=== PATIENT | male | born 1970 | race African-American/Black ===

== ENCOUNTER 2024-01-14 15:43 | Inpatient (IN) | payer BC, SELFPAY ==
[2024-01-14] VITALS (10 sets, daily range): BP systolic 100–136; BP diastolic 61–93
--- NOTE | 2024-01-14 12:01 | ED.GENMED ---
History of Present Illness
General
Chief Complaint: Breathing Problem
Source: patient
Exam Limitations: none
Time Seen by Provider: 01/14/24 11:34
Nursing documentation reviewed up to this point in time: agreed with
Travel History
Have you had any contact with someone who has COVID-19?: No
Do you have any symptoms of coronavirus? Fever > 100 degrees, chills, cough, shortness of breath, sore throat, loss of taste or smell, muscle aches, or headache?: No
History of Present Illness
History of Present Illness:
53-year-old male with past medical history of lupus hypertension presents to the ER for evaluation. Patient reports on Tuesday 3 days ago he started with left rib cage pain and thought he slept in his bed wrong. In addition his blood pressure
was running high and his family doctor switched his amlodipine to amlodipine with HCTZ. He reports since new medication has not been sleeping well because he is urinated many times throughout the night however last night noted that his urine was
rust colored. Today he saw his family doctor his urine was also rust color and there was small clots of blood. He does feel slightly short of breath even at rest but does have pain worse with deep breath in the left posterior rib area. No prior
history of DVT PE.
Past History
Past History
ED Past Medical History: HTN and Other (Lupus)
ED Past Surgical History: None
Patient has exhibited threatening behavior?: No
PSI?: No
Social History
Tobacco: Non-smoker
Alcohol: None
Drug: None
Personal:
Living: with family
Employment: Employed
Review of Systems
Review of Systems
Allergies reviewed?: Yes
All Other Systems: ROS reviewed and negative except as documented in HPI and ROS
Constitutional: Reports no symptoms
Respiratory: Reports trouble breathing and other (pain with deep breath to left posterior rib region ); Denies cough
Cardiac: Reports no symptoms
ABD/GI: Reports no symptoms; Denies nausea or vomiting
: Reports bleeding (blood in urine )
Skin: Reports no symptoms
Neurological: Reports no symptoms
Phy Exam
General Physical Exam
General Presentation: no apparent distress
General age: appears stated age
General Skin: warm and dry
General Habitus: obese
General Mental: alert
General Hydration: appears well hydrated
Cardiovascular Exam
Cardiovascular Exam: regular rate/rhythm, no murmur and normal peripheral pulses
Pulmonary Exam
Pulmonary Exam: lungs clear and no respiratory distress
Neurological Exam
Neurological Exam: alert and oriented x3
[place] Coma Scale
Eye Opening: Spontaneous
Verbal Response: Oriented
Motor Response: Obeys Commands
GCS Total Score: 15
Musculoskeletal Exam
Musculoskeletal Exam: full ROM
Skin Exam
Skin Exam: normal color and warm/dry
Psychiatric Exam
Psychiatric Exam: normal mood/affect
Scores
Heart Failure Risk
Heart Failure Risk Score: Not Applicable
PESI
Age: 53
Sex: Male
History of cancer: No
History of heart failure: No
History of chronic lung disease: No
Heart rate >/= 110: No
Systolic BP <100 mmHg: No
Respiratory rate >/= 30: No
Temperature <36�C/96.8�F: No
Altered mental status (disorientation, lethargy, stupor, or coma): No
O2 saturation <90%: No
Score: 62
Class: Class 1: <66 (very low mortality 0-1.6%)
Course
Orders/Labs/Results
Orders:
Orders
01/14/24 10:39
Electrocardiogram (*1) Urgent
Reason for Study: Chest Pain
01/14/24 10:40
EKG- Treatment ONCE
01/14/24 11:56
IV Insert/Care/Rem.- Treatment PRN
01/14/24 12:24
Complete Blood Count/With Diff Urgent
Comprehensive Metabolic Panel Urgent
DDimer [D-Dimer] Urgent
01/14/24 13:29
CT Chest Pe Study Urgent
Comment:
Reason For Exam: sob left pleuritic pain
01/14/24 13:30
CT Abd/Pel (IV only)-DH only Urgent
Reason For Exam: left flank pain
01/14/24 14:37
Urinalysis Reflex To Culture Urgent
Date Specimen was Collected: 01/14/24
Time Specimen was Collected: 12:22
Urine Microscopic Reflex Cult Urgent
Urine Culture Urgent
CHRISTINE Source: U
Specimen Description:
Date Specimen was Collected: 01/14/24
Time Specimen was Collected: 12:22
01/14/24 15:01
Heparin 10,000 units IV NOW STA
Nursing to Place Non Medication Order As Directed
Physician Order: PTT 6 hours after initial start of Heparin infusion
Above order entered?: Yes
01/14/24 15:20
Heparin 10,000 units IV PRN PRN
Heparin 5,000 units IV PRN PRN
01/14/24 15:23
PTT Urgent
Comment: Obtain baseline before beginning heparin infusion if not already collected
01/14/24 15:27
Admit/Transfer Patient As Directed
Co-Sign Provider:
Level of Care: Inpatient admission
Assign to:: Telemetry
Physician / Group: Hospitalist
Diagnosis: PE
Reason for Telemetry: Medication for Arrhythmia
Date to Stop Telemetry: 01/16/24
Time to Stop Telemetry: 11:00
Reason for Hospitalization: .
Expected length of stay greater than two midnights?: Yes
ELOS- Estimated Length of Stay in days: 3
I certify the patient meets the requirements for IP care: Yes
01/14/24 15:30
Heparin 74056 Units/250 ml 25,000 units in 250 ml IV PER PROTOCOL
Weight to be used for heparin protocol in kilograms (kg):: 176.7
Protocol:: DVT/PE
PTT Goal Range to be used:: PTT 73 to 111 seconds
Order type:: Initial
INITIAL Infusion Dose (UNITS/KG/hr) & then follow protocol:: 18 units/kg/hr
Infusion Dose in UNITS/hr & then follow protocol (UNITS/hr):: 2,000
INFUSION RATE in mL/hr & then follow protocol (mL/hr):: 20
For DVT/PE algorithm, re-bolus for low PTT?: Yes
PTT less than or equal to 64 seconds:: Re-bolus 80 units/kg (max 10,000units). Increase by 500 units/hr
(+ 5mL/hr)
PTT 64.1 to 72.9 seconds:: Re-bolus 40 units/kg (max 5,000 units). Increase by 300 units/hr
(+ 3mL/hr)
PTT 73 to 111 seconds:: Target Range. No change in rate.
PTT 111.1 to 130.9 seconds:: Decrease rate by 300 units/hr (- 3 mL/hr)
PTT 131 to 199.9 seconds:: HOLD for 1 hr. Then decrease by 400 units/hr (- 4mL/hr)
PTT greater than or equal to 200 seconds:: HOLD for 2 hrs & Notify Provider. Then decrease by 500 units/hr
(- 5mL/hr)
Lab follow-up:: Each change, PTT q6h until 2 consecutive are therapeutic. Then
PTT daily.
01/14/24 15:33
Troponin I Stat
01/14/24 21:42
PTT Urgent
01/16/24 11:00
DC Protocol for Telemetry ONCE
Abnormal Lab Results
01/14/24 01/14/24
12: 14:37
Plt Count 110 L 10^3/uL
(130-400)
MPV 11.6 H fL
(7.4-10.4)
Absolute Lymphs (auto) 0.8 L 10^3/uL
(1.2-3.4)
Absolute Monos (auto) 0.9 H 10^3/uL
(0.1-0.6)
Neutrophils % 75.4 H %
(42.2-75.2)
Lymphocytes % 11.7 L %
(20.5-51.1)
Monocytes % 12.2 H %
(1.7-9.3)
D-Dimer 1.35 H ug/mlFEU
(0.00-0.50)
Glucose 112 H mg/dl
(70-99)
Total Bilirubin 2.1 H mg/dl
(0.2-1.3)
Total Protein 8.8 H g/dl
(6.3-8.2)
Urine Ketones 1+ A
(Negative)
Ur Occult Blood Reflex Trace A
(Negative)
Urine Urobilinogen 2+ A
(Neg - 1+)
Leukocyte Esterase Rfl 2+ A
(Negative)
Urine RBC 3-6 A /HPF
(0-2)
Urine WBC (Reflex) 16-20 A /HPF
(0-5)
Urine Bacteria (Reflex) Few A
(Negative)
01/14/24 12:24
01/14/24 12:24
Vital Signs
Initial and Last Documented VS:
Initial Vital Signs
Temp Pulse Resp BP Pulse Ox
100.0 F 96 18 124/78 95
01/14/24 10:58 01/14/24 10:58 01/14/24 10:58 01/14/24 10:58 01/14/24 10:58
Last Documented Vital Signs
Temp Pulse Resp BP Pulse Ox
100.0 F 97 25 120/61 95
01/14/24 10:58 01/14/24 15:30 01/14/24 14:45 01/14/24 15:00 01/14/24 15:30
Tape Cutting Machine Operator consulted with Physician
Tape Cutting Machine Operator consulted with physician?: Yes
Name of Physician Consulted: Samira
MDM/Problems Addressed
Differential Diagnosis Includes:
Not limited to UTI kidney stone PE pleurisy
MDM/Problems Addressed:
Patient is a 53-year-old male who present to the ER for evaluation. Patient was started on amlodipine with hydrochlorothiazide for elevated blood pressure the HCTZ was new he was up frequently urinating and noticed blood in his urine which she
describes as rust color and also passing clots in the doctor's office. He was sent for possible renal stone. He also admits to some shortness of breath which is new over the past day or 2 with left-sided pleuritic pain. Patient present
nontachycardic nonhypoxic low-grade temp with no recent fever or chills. CAT scan was done which does show pulmonary embolus in the left lower lobe segmental pulmonary artery consistent with PE thrombus and there is also artifact versus tiny PE in
the right lower lobe and right upper lobe findings equivocal for right ventricular heart strain.
Patient nontoxic well-appearing no stones or hydro visualized on CAT scan. Will start heparin.
Pt carranza have burning with urination in addition to frequent urination he did mention rust colored urine and thought he had blood in his urine however RBCs only 3�6 however white blood cells 16-20 case discussed admitting hospitalist who will order
Rocephin
*Radiology
Radiology exam reviewed: radiology read reviewed
*Pulse Oximetry
Patient hypoxic: no
*Critical Care Note
Total Time (30-74mins, 75-104mins- exclusive of procedures): Not Applicable
ED Attending Note
-
Portions of this chart may have been created with voice recognition software.� Occasional wrong word or��sound alike� substitutions may have occurred due to the inherent limitations of voice recognition software.
Discharge Plan
Departure
Patient Disposition: Admit
Date of Disposition: 01/14/24
Time of Disposition: 16:01
Admit to: Telemetry
Admit to doctor: bambi
Presentation/result/management discussed w/ accepting MD/DO: Hospitalist
Patient with high blood pressure during this ER visit?: No
Condition: Fair
Covid-19: Not Applicable
Discharge Problem:
Pulmonary embolism, Acute UTI
Interventions
Interventions:
*ED COVID-19 Vaccine History Last Done: 01/14/24 10:58
ED- Cardiac Assessment Last Done: 01/14/24 12:41
ED- Pulmonary Assessment Last Done: 01/14/24 12:41
[2024-01-14 12:42] LABS: % Basophils 0.3 % (0-2); % Eosinophils 0.1 % (0-6); % Immature Granulocytes 0.3 % (0-0.5); % Lymphocytes 11.7 % (20.5-51.1); % Monocytes 12.2 % (1.7-9.3); % Neutrophils 75.4 % (42.2-75.2); Absolute Lymphocytes 0.8 10^3/uL (1.2-3.4); Absolute Monocytes 0.9 10^3/uL (0.1-0.6); Absolute Neutrophils 5.2 10^3/uL (1.4-6.5); Hematocrit 42.7 % (39.0-52.0); Hemoglobin 14.3 g/dL (13.0-18.0); Mean Corp Hgb Conc. 33.5 g/dL (33.0-37.0); Mean Corpuscular Hgb 27.5 pg (27.0-31.0); Mean Corpuscular Volume 82.1 fL (80.0-94.0); Mean Platelet Volume 11.6 fL (7.4-10.4); Nucleated Red Blood Cells % 0 % (-); Platelet Count 110 10^3/uL (130-400); Red Cell Dist. Width 14.3 % (11.5-14.5)
[2024-01-14 12:50] LABS: ALT (SGPT) 16 U/L (0-50); AST (SGOT) 24 U/L (17-59); Alkaline Phosphatase 91 U/L (38-126); Blood Urea Nitrogen 9 mg/dl (9-20); Carbon Dioxide 25 mmol/L (22-30); Chloride 102 mmol/L (98-107); Glucose 112 mg/dl (70-99); Potassium 3.9 mmol/L (3.5-5.1); Sodium 136 mmol/L (135-145); Total Bilirubin 2.1 mg/dl (0.2-1.3); Total Protein 8.8 g/dl (6.3-8.2); eGFR > 60.00
[2024-01-14 12:51] LABS: D-Dimer 1.35 ug/mlFEU (0.00-0.50)
[2024-01-14 14:46] LABS: Urine Albumin Trace (Neg - Trace); Urine Bilirubin Negative (Negative); Urine Character Clear (Clear); Urine Color Yellow; Urine Glucose Negative (Negative); Urine Ketone 1+ (Negative); Urine Leukocyte 2+ (Negative); Urine Nitrite Negative (Negative); Urine Occult Blood Trace (Negative); Urine Urobilinogen 2+ (Neg - 1+); Urine pH 6.5 (5.0-9.0)
--- NOTE | 2024-01-14 15:27 | HPS.HSE ---
Family Physician
-
Family Physician: Dada Simpson
Chief Complaint
-
Left pleuritic chest pain
History of Present Illness
53 years old male came from home. Patient went to his primary care doctor for evaluation of left lower pleuritic chest pain that he developed in last a few days. He initially went to her primary care doctor for uncontrolled high blood pressure.
He was given hydrochlorothiazide. His a blood pressure improved but he started to have dysuria and polyuria. He was concerned about left kidney stone and was sent to the ER. Imaging studies showed left lower lobe pulmonary embolism with tiny
pulmonary emboli in the right lower lobe and right upper lobe also. Scan of the abdomen and pelvis did not show hydronephrosis. Urine was positive for leukocyte Estrace, RBC, bacteria.
Patient was noted to have tachycardia in the ER
Medical History
Past Medical History
Past Medical History: Reports Other (Hypertension, lupus)
Past Surgical History: Reports Other (No recent major surgery)
Social History
Tobacco: Non-smoker
Alcohol: None
Drug: None
Personal:
Living: With Family
Employment: Employed (He is an quality auditor)
Family History
Family History: Other (His father of lung age. His mother alive from 90s. His brother has lupus)
Allergies / Home Medications
Allergies reflects when Allergies were last updated in [facility] [facility].
Home Medications with original date entered in [facility]
Allergy/Medication List:
Allergies
Allergy/AdvReac Type Severity Reaction Status Date / Time
ragweed pollen Allergy Unknown Verified 06/04/23 14:17
Home Medications
acetaminophen 500 mg tablet (Tylenol Extra Strength) 1,000 mg PO DAILYPRN PRN mild pain 01/14/24
amlodipine 10 mg tablet 10 mg PO DAILY 01/14/24
ascorbic acid (vitamin C) 1,000 mg tablet (Vitamin C) 1,000 mg PO DAILY 01/14/24
hydroxychloroquine 200 mg tablet 400 mg PO DAILY 01/14/24
Review of Systems
-
History Source: Patient
A 12 point ROS was completed and negative except as noted: Yes
Constitutional: Denies Fever or Chills
EENT: Denies Sore Throat
Respiratory: Reports Other; Denies Cough
Cardiac: Reports Chest Pain (Left-sided pleural)
Abdomen/GI: Denies Abdominal Pain
: Reports Dysuria and Frequency
Musculoskeletal: Denies Joint Pain
Skin: Denies Itching
Neurological: Denies Numbness
Endocrine: Denies Temp Intolerance
Hematologic/Lymphatic: Denies Bruising
Psych: Denies Panic Disorder
Physical Exam
Vital Signs
Vital Signs
Temp Pulse Resp BP Pulse Ox
100.0 F 99 25 120/61 96
01/14/24 10:58 01/14/24 15:00 01/14/24 14:45 01/14/24 15:00 01/14/24 15:00
Physical Exam
General: No Apparent Distress, Obese and Morbidly Obese
HEENT: Moist mucous membranes and Atraumatic
Respiratory: Decreased Breath Sounds; No Wheezes
Cardiac: Regular Rhythm and Tachycardia
GI: Soft and Non Tender
Genito-urinary: No Bloody Urine
Musculoskeletal: No Clubbing, No Cyanosis and No Edema
Skin: Warm
Neuro: AO x 3; No Slurred Speech, Facial Droop or Tremors
Psych: Calm and Intact Judgment/Insight
Laboratory Results
-
01/14/24 12:24
01/14/24 12:24
Laboratory Results
Total Bilirubin 2.1 mg/dl (0.2-1.3) H 01/14/24 12:24
AST 24 U/L (17-59) 01/14/24 12:24
ALT 16 U/L (0-50) 06/15/24 12:24
Alkaline Phosphatase 91 U/L (38-126) 01/14/24 12:24
Impression/Plan
-
53 years old male presented with pleuritic chest pain was found to have bilateral pulmonary emboli
#Bilateral pulmonary emboli
Admit the patient to the hospital
Scan showed possible right heart ventricular strain. Positive tachycardia. No hypoxia
Monitor on telemetry
Check troponin
Venous Doppler of both lower extremities
Echocardiogram
Start the patient on intravenous heparin protocol for 48 hours, monitor PTT
Eventual oral anticoagulation
Consult hematology, patient has risk for thromboembolism due to lupus
Appreciate hematology input
# Sinus tachycardia, suspect secondary to PE.
Give IV hydration and monitor on telemetry.
Use as needed IV metoprolol
# Lupus, continue hydroxychloroquine
# Essential hypertension, patient was recently started on hydrochlorothiazide with amlodipine.
Patient reports dysuria and polyuria since starting diuretic therapy
Discussed with patient, we will change amlodipine to nifedipine for better blood pressure control
# Obesity,
# History of dysuria and polyuria with positive urine for leukocyte Estrace and white blood cells And bacteria
Scan of the abdomen and pelvis did not show hydronephrosis. Will check bladder scan.
Empiric intravenous Rocephin pending urine culture. Patient has history of UTI in the past
Total time spent to see the patient, examine the patient on the floor, review data and lab results, discuss treatment plan with patient, ER doctor, nursing staff around 75 minutes
[2024-01-14] MEDS: HEPARIN 10000 UNITS IV (15:39)
[2024-01-14] MEDS: HEPARIN 25000 UNITS/250 ML IV (15:40)
[2024-01-14 15:45] LABS: Urine Mucus Few
[2024-01-14 15:46] LABS: Urine Squamous Cell >30 /LPF (Few)
[2024-01-14 15:47] LABS: Urine Bacteria Few (Negative); Urine White Cell 16-20 /HPF (0-5)
[2024-01-14 15:48] LABS: APTT 26.9 Sec (23.4-35.0)
[2024-01-14 16:06] LABS: Troponin I < 0.012 ng/ml
[2024-01-14] MEDS: NSS 1000 IV (17:19)
[2024-01-14] MEDS: ANCEF 5 IV (18:23)
[2024-01-14 22:15] LABS: APTT 104.6 Sec (23.4-35.0)
[2024-01-15] MEDS: ANCEF 5 IV ×3 (01:27→17:46)
[2024-01-15] MEDS: NSS 1000 IV ×2 (01:30→10:48)
[2024-01-15 03:10] VITALS: BP 121/74
[2024-01-15] MEDS: HEPARIN 25000 UNITS/250 ML IV ×2 (03:22→14:48)
[2024-01-15] MEDS: TYLENOL 1000 MG PO ×2 (04:01→11:59)
[2024-01-15 04:58] LABS: Hematocrit 38.5 % (39.0-52.0); Hemoglobin 13.2 g/dL (13.0-18.0); Mean Corp Hgb Conc. 34.3 g/dL (33.0-37.0); Mean Corpuscular Hgb 27.9 pg (27.0-31.0); Mean Corpuscular Volume 81.4 fL (80.0-94.0); Mean Platelet Volume 11.3 fL (7.4-10.4); Platelet Count 111 10^3/uL (130-400); Red Blood Cell Count 4.73 10^6/uL (4.70-6.10); Red Cell Dist. Width 14.2 % (11.5-14.5); White Blood Cell Count 7.3 10^3/uL (4.8-10.8)
[2024-01-15 05:09] LABS: APTT 64.3 Sec (23.4-35.0)
[2024-01-15 05:38] LABS: ALT (SGPT) 13 U/L (0-50); AST (SGOT) 23 U/L (17-59); Albumin 3.6 g/dl (3.5-5.0); Alkaline Phosphatase 79 U/L (38-126); Blood Urea Nitrogen 8 mg/dl (9-20); Calcium 8.6 mg/dl (8.4-10.2); Carbon Dioxide 21 mmol/L (22-30); Chloride 104 mmol/L (98-107); Glucose 103 mg/dl (70-99); Potassium 3.9 mmol/L (3.5-5.1); Sodium 134 mmol/L (135-145); Total Bilirubin 1.9 mg/dl (0.2-1.3); Total Protein 7.9 g/dl (6.3-8.2); eGFR > 60.00
[2024-01-15] MEDS: HEPARIN 5000 UNITS IV ×2 (05:39→17:11)
[2024-01-15 07:00] VITALS: BP 111/83
[2024-01-15] MEDS: PLAQUENIL 400 MG PO (08:36)
[2024-01-15] MEDS: PROCARDIA XL (EXTENDED RELEASE) 60 MG PO (08:36)
--- NOTE | 2024-01-15 09:59 | W.PN.HOSP.TC ---
Addendum entered and electronically signed by Anil Palacio MD 01/15/24 16:01:
Addendum
I met with and daughter at bedside. Reviewed results and management plan including use of Coumadin, potential side effects and benefits of systemic anticoagulation. Reviewed medication options. Patient wanted to go home tomorrow. Explained
that the need to use intravenous heparin while INR to become therapeutic was essential. An option to use Lovenox but patient's weight might prohibit that and also we are not sure about insurance coverage yet. Patient was made aware that he might
need to stay in the hospital until INR becomes therapeutic ( 2-3) while covering with IV heparin. Started on Coumadin.
Patient will need to follow-up with trust accounts supervisor for further management in the outpatient setting. He and family verbalized understanding.
d/w nursing staff
End
Original Note:
Today's Communication/Plan
-
Coumadin Tx
c/w IV heparin
lower rate of IVF
DO blood cultures
c/w Ancef
Assessment / Plan
Assessment / Plan
Physical Exam
General: No Apparent Distress, Obese and Morbidly Obese
HEENT: Moist mucous membranes and Atraumatic
Respiratory: Decreased Breath Sounds; No Wheezes
Cardiac: Regular Rhythm and Tachycardia
GI: Soft and Non Tender
Genito-urinary: No Bloody Urine
Musculoskeletal: No Clubbing, No Cyanosis and No Edema
Skin: Warm
Neuro: AO x 3; No Slurred Speech, Facial Droop or Tremors
Psych: Calm and Intact Judgment/Insight
53 years old male presented with pleuritic chest pain was found to have bilateral pulmonary emboli
#Bilateral pulmonary emboli
No Hypoxia
Less pleuritic chest pain
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
Will start 10 mg Coumadin tonight and f/w INR, he might need high doses to get INR to therapeutic level Admit the patient to the hospital
0Scan showed possible right heart ventricular strain with Positive tachycardia. Negative troponin on admission.
c/w Monitor on telemetry
Venous Doppler of both lower extremities, no DVT
Echocardiogram is ordered
c/w intravenous heparin protocol for 48 hours, monitor PTT
Eventual oral anticoagulation
Will consult hematology, patient has risk for thromboembolism due to lupus, need for OP follow up also. Appreciate hematology input
# Sinus tachycardia, secondary to PE.
Given IV hydration and monitor on telemetry, pt wants to c/w IVF, will lower the rate.
Use as needed IV metoprolol
# Lupus, continue hydroxychloroquine
# Essential hypertension, patient was recently started recently on hydrochlorothiazide with amlodipine.
Patient reported dysuria and polyuria since starting diuretic therapy
Discussed with patient, we will change amlodipine to nifedipine for better blood pressure control
# Obesity,
# History of dysuria and polyuria with positive urine for leukocyte Estrace and white blood cells And bacteria
Scan of the abdomen and pelvis did not show hydronephrosis. Will check bladder scan.
Empiric intravenous Rocephin pending urine culture. Patient has history of UTI in the past
# Low grade fever
c/w UTI Tx, do blood culture also
# hyponatremia.
Total time spent to see the patient, examine the patient on the floor, review data and lab results, discuss treatment plan with patient, nursing staff around 59 minutes
Anticipated Discharge: > 48 hours
Subjective/Interval History
-
Date of Service: January 15, 2024
he feels better
No chest pain or sob
Objective Data
-
Labs:
Laboratory Results
01/14/24 01/15/24 01/15/24
21:57 04:47 11:45
WBC 7.3
Hgb 13.2
Hct 38.5 L
Plt Count 111 L
APTT 104.6 H 64.3 H Pending
Sodium 134 L
Potassium 3.9
Chloride 104
Carbon Dioxide 21 L
BUN 8 L
Creatinine 0.7
Glucose 103 H
Calcium 8.6
Total Bilirubin 1.9 H
AST 23
ALT 13
Alkaline Phosphatase 79
Vital Signs:
Vital Signs
Temp Pulse Resp BP Pulse Ox
98.2 F 98 18 121/79 95
01/15/24 07:00 01/15/24 08:36 01/15/24 07:00 01/15/24 08:36 01/15/24 07:00
I&O
01/14/24 01/15/24 01/16/24
06:59 06:59 06:59
Intake Total 2220 / 2220
Output Total 240 / 240
Balance 1979 / 1979
[2024-01-15 11:00] VITALS: BP 154/85
--- NOTE | 2024-01-15 11:59 | CON.ONC ---
Impression
Impression
Pulmonary embolus without clear provocation
History of lupus elevated sedimentation rate
Obesity
Sinus tachycardia
Plan
Plan
Patient with normal PTT on presentation
Evaluate for lupus anticoagulant, anticardiolipin antibody and beta-2 glycoprotein titers
Outpatient complete hypercoagulability profile
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
Patient History
History of Present Illness
53 years old male came from home. Patient went to his primary care doctor for evaluation of left lower pleuritic chest pain that he developed in last a few days. He initially went to her primary care doctor for hypertension. He was given
hydrochlorothiazide. His a blood pressure improved but he started to have dysuria and polyuria. He was concerned about left kidney stone and was sent to the ER. Imaging studies revealed bilateral pulmonary emboli of unclear duration. Scan of the
abdomen and pelvis did not show hydronephrosis. Urine was positive for leukocyte Estrace, RBC, bacteria. He has had a previous diagnosis of lupus approximately 1 year ago when he presented with diffuse arthralgias.
Past-Medical/Surgical History
Past Medical History
Past Medical History: Hypertension, lupus)
Past Surgical History: None
Social History
Tobacco: Non-smoker
Alcohol: None
Drug: None
Personal:
Living: With Family
Employment: Employed (He is an taxation accountant)
Family History
Family History: Other (His father of lung age. His mother alive from 90s. His brother has lupus)
Patient Medication
�Medication �Instructions �Recorded �Confirmed �Last Taken �Type
acetaminophen 500 mg tablet 1,000 mg PO DAILYPRN PRN mild pain 01/14/24 01/14/24 01/13/24 History
(Tylenol Extra Strength)
amlodipine 10 mg tablet 10 mg PO DAILY 01/14/24 01/14/24 01/14/24 History
ascorbic acid (vitamin C) 1,000 mg 1,000 mg PO DAILY 01/14/24 01/14/24 01/12/24 History
tablet (Vitamin C)
hydroxychloroquine 200 mg tablet 400 mg PO DAILY 01/14/24 01/14/24 01/14/24 History
Active Medications
Generic Name Dose Route Start Last Admin
Trade Name Freq PRN Reason Stop Dose Admin
Acetaminophen 1,000 mg 01/14/24 17:00 01/15/24 04:01
Acetaminophen 500 Mg Tablet PO 02/11/24 16:59 1,000 mg
Q6HPRN PRN Administration
mild to mod pain
Heparin Sodium 10,000 units 01/14/24 15:20
Heparin 80 Units/Kg Iv Rebolus IV 02/11/24 15:19
PRN PRN
PTT < OR = 64 seconds
Heparin Sodium 5,000 units 01/14/24 15:20 01/15/24 05:39
Heparin 40 Units/Kg Iv Rebolus IV 02/11/24 15:19 5,000 units
PRN PRN Administration
PTT = 64.1 to 72.9 seconds
Hydroxychloroquine Sulfate 400 mg 01/15/24 08:00 01/15/24 08:36
Hydroxychloroquine 200 Mg Tablet PO 02/12/24 07:59 400 mg
DAILY CAMILA Administration
Heparin Sodium 25,000 units in 250 mls @ 0 mls/hr 01/14/24 15:30 01/15/24 03:22
Heparin 24464 Units/250 Ml IV 250 mls
PER PROTOCOL CAMILA Administration
Protocol
Per Protocol
Cefazolin Sodium 1 gram in 5 mls @ 60 mls/hr 01/14/24 18:00 01/15/24 10:49
Ancef IV 5 mls
Q8H CAMILA Administration
Sodium Chloride 1,000 mls @ 125 mls/hr 01/14/24 17:00 01/15/24 10:48
Nss IV 1,000 mls
.Q8H CAMILA Administration
Metoprolol Tartrate 5 mg 01/14/24 17:00
Metoprolol 5 Mg/5 Ml Vial IV 02/11/24 16:59
Q6HPRN PRN
HR >120 and/or SBP >150
Nifedipine 60 mg 01/15/24 08:00 01/15/24 08:36
Nifedipine 60 Mg Extended Release Tablet PO 02/12/24 07:59 60 mg
DAILY CAMILA Administration
Sodium Chloride 0 flush 01/14/24 18:00
Sodium Chloride 0.9% (Flush) Syringe IV 02/11/24 17:59
PER PROTOCOL CAMILA
Review of Systems
-
Patient denies additional complaints other than those reviewed in HPI. He continues to have discomfort with deep inspiration.
Physical Exam
-
Physical Exam
General: No Apparent Distress, Obese and Morbidly Obese
HEENT: Moist mucous membranes and Atraumatic
Respiratory: Decreased Breath Sounds; No Wheezes
Cardiac: Regular Rhythm and Tachycardia
GI: Soft and Non Tender
Musculoskeletal: No Clubbing, No Cyanosis and No Edema
Skin: Warm
Neuro: Nonfocal
Psych: Calm and Intact Judgment/Insight
Labs
Lab Results
WBC 7.3 10^3/uL (4.8-10.8) 01/15/24 04:47
RBC 4.73 10^6/uL (4.70-6.10) 01/15/24 04:47
Hgb 13.2 g/dL (13.0-18.0) 01/15/24 04:47
Hct 38.5 % (39.0-52.0) L 01/15/24 04:47
MCV 81.4 fL (80.0-94.0) 01/15/24 04:47
MCH 27.9 pg (27.0-31.0) 01/15/24 04:47
MCHC 34.3 g/dL (33.0-37.0) 01/15/24 04:47
RDW 14.2 % (11.5-14.5) 01/15/24 04:47
Plt Count 111 10^3/uL (130-400) L 01/15/24 04:47
MPV 11.3 fL (7.4-10.4) H 01/15/24 04:47
Abs Immat Gran (auto) 0.0 10^3/uL (0-0.05) 01/14/24 12:24
Absolute Neuts (auto) 5.2 10^3/uL (1.4-6.5) 01/14/24 12:24
Absolute Lymphs (auto) 0.8 10^3/uL (1.2-3.4) L 01/14/24 12:24
Absolute Monos (auto) 0.9 10^3/uL (0.1-0.6) H 01/14/24 12:24
Absolute Eos (auto) 0.0 10^3/uL (0-0.7) 01/14/24 12:24
Absolute Basos (auto) 0.0 10^3/uL (0-0.2) 01/14/24 12:24
Immature Gran % 0.3 % (0-0.5) 01/14/24 12:24
Neutrophils % 75.4 % (42.2-75.2) H 01/14/24 12:24
Lymphocytes % 11.7 % (20.5-51.1) L 01/14/24 12:24
Monocytes % 12.2 % (1.7-9.3) H 01/14/24 12:24
Eosinophils % 0.1 % (0-6) 01/14/24 12:24
Basophils % 0.3 % (0-2) 01/14/24 12:24
Creatinine 0.7 mg/dL (0.7-1.3) 01/15/24 04:47
Vital Signs
Vital Signs
Temp Pulse Resp BP Pulse Ox
99.6 F 97 16 154/85 98
01/15/24 11:00 01/15/24 11:00 01/15/24 11:00 01/15/24 11:00 01/15/24 11:00
[2024-01-15 12:09] LABS: APTT 112.4 Sec (23.4-35.0)
[2024-01-15 15:00] VITALS: BP 129/88
--- NOTE | 2024-01-15 16:15 | CM ---
manager wealth management reviewed patient's chart and met with patient and patient lives with his spouse and 4 daughters in a 2 story home, patient is independent with adl's and ambulation, no dme, patient drives, patient has a prescription plan and uses
[facility] pharmacy.
PCP: Dr. Simpson
Plan; Home when stable.
[2024-01-15] MEDS: COUMADIN 10 MG PO (17:15)
[2024-01-15 19:40] VITALS: BP 123/78
[2024-01-15 23:26] VITALS: BP 167/116
[2024-01-16] MEDS: NSS 1000 IV ×3 (00:30→22:25)
[2024-01-16] MEDS: TYLENOL 1000 MG PO ×2 (00:38→21:10)
[2024-01-16 00:45] LABS: APTT 95.3 Sec (23.4-35.0)
[2024-01-16] MEDS: HEPARIN 25000 UNITS/250 ML IV ×3 (01:50→22:53)
[2024-01-16] MEDS: ANCEF 5 IV ×3 (01:51→17:35)
[2024-01-16 03:41] VITALS: BP 140/95
[2024-01-16 07:00] VITALS: BP 168/121
[2024-01-16 07:03] LABS: INR 1.24; PT 15.4 Sec (11.4-14.6)
[2024-01-16 07:04] LABS: APTT 59.7 Sec (23.4-35.0)
[2024-01-16 07:06] LABS: Hematocrit 41.8 % (39.0-52.0); Hemoglobin 14.2 g/dL (13.0-18.0); Mean Corpuscular Hgb 27.8 pg (27.0-31.0); Mean Corpuscular Volume 81.8 fL (80.0-94.0); Mean Platelet Volume 11.3 fL (7.4-10.4); Platelet Count 123 10^3/uL (130-400); Red Blood Cell Count 5.11 10^6/uL (4.70-6.10); Red Cell Dist. Width 13.9 % (11.5-14.5); White Blood Cell Count 6.3 10^3/uL (4.8-10.8)
--- NOTE | 2024-01-16 07:35 | PTCARENOTE ---
Addendum entered by Sol Willson RN 01/16/24 07:42:
Spoke with educator, found policy with Heparin upper hard limit is 3800units/hour.
Original Note:
Clarified with pharmacist Josette Dinh that there is no max heparin dosing per protocol. Will increase infuse rate and bolus per protocol.
[2024-01-16] MEDS: HEPARIN 10000 UNITS IV (07:57)
[2024-01-16] MEDS: PROCARDIA XL (EXTENDED RELEASE) 60 MG PO (09:22)
[2024-01-16] MEDS: PLAQUENIL 400 MG PO (09:23)
[2024-01-16] MEDS: LOPRESSOR 5 MG IV (09:23)
--- NOTE | 2024-01-16 10:53 | CM ---
Patient seen at bedside. Patient states that his daughter will transport him home and will be here shortly. Patient cost for Lovenox is 15$ for 150mg sq x2 for 30 days. Patient physician updated. Patient plan is for discharge home today. CM will
continue to follow for discharge planning needs.
Plan; home with VN pending acceptance
[2024-01-16 11:38] VITALS: BP 159/114
--- NOTE | 2024-01-16 12:09 | W.PN.UPDATE ---
Update Note
Progress Note Update
Full note to follow.
Clarification: pt does not have a prior diagnosis of lupus anticoagulant/APLA.
Eliquis would be okay unless APLA panel returns positive.
Eilquis appropriate in setting of obesity. From UpToDate:
In patients with venous thromboembolism, retrospective data suggest that no dosage adjustment is necessary in patients with a BMI >40 kg/m2�or who weigh >100 to 300 kg when compared to warfarin with studies reporting either reduced or similar rates
of recurrent thrombotic events and no difference in bleeding.
--- NOTE | 2024-01-16 15:40 | PTCARENOTE ---
Critical PTT 160.1. Heparin Gtt on Hold until 16:40, will restart at 2400.
[2024-01-16 15:41] VITALS: BP 148/83
[2024-01-16 15:41] LABS: APTT 160.1 Sec (23.4-35.0)
[2024-01-16 15:56] LABS: Blood Urea Nitrogen 6 mg/dl (9-20); Calcium 8.7 mg/dl (8.4-10.2); Carbon Dioxide 23 mmol/L (22-30); Chloride 103 mmol/L (98-107); Glucose 97 mg/dl (70-99); Iron 46 ug/dl (49-181); Potassium 3.7 mmol/L (3.5-5.1); Sodium 135 mmol/L (135-145); eGFR > 60.00
[2024-01-16 16:53] LABS: Percent Saturation 15 % (20-50); Total Iron Binding Capacity 294 ug/dl (261-462)
[2024-01-16] MEDS: COUMADIN 10 MG PO (17:35)
--- NOTE | 2024-01-16 19:37 | W.PN.HOSP.TC ---
Addendum entered and electronically signed by Jeannie Andersen MD 01/16/24 20:59:
Patient seen and examined independently--agree with plan as set forth by Dr. Young
GENERAL: well developed, well nourished, obese male in no apparent distress
HEENT: NC/AT--no O2 requirements
HEART: regular rate and rhythm, +S1, +S2
LUNGS : clear to auscultation bilaterally
ABDOM: soft, nontender, nondistended, + bowel sounds
EXT: no cyanosis, clubbing, or edema
NEUROLOGIC: grossly intact
Bilateral pulmonary emboli--Suspected APLA vs lupus-induced coagulopathy (no prior diagnosis of either)--Peripheral vascular ultrasound with no evidence of DVT---No Hypoxia--Pleuritic chest pain greatly improved--Currently on 10 mg Coumadin with
heparin bridge, INR currently 1.24, not therapeutic--Continue IV heparin and monitor PTT---APLA panel pending, if negative then would be candidate for Eliquis, for now cont coumadin--Continue hydroxychloroquine for now--Hematology
appreciated--Echocardiogram unremarkable.
Sinus tachycardia--Likely due to PE--Continue IV metoprolol as needed.
Essential hypertension--Labile blood pressure in a.m., currently controlled on nifedipine.
Possible UTI--History of dysuria and polyuria with positive urine for leukocyte esterase and white blood cells with bacteria---Scan of the abdomen and pelvis did not show hydronephrosis. Will check bladder scan--Continue Ancef.
Low grade fever--Continue Ancef--Blood culture pending, no growth to date.
Hyponatremia--Resolved-Likely hypervolemic hyponatremia
Code status -- FULL CODE
Original Note:
Today's Communication/Plan
-
Continue Ancef
Monitor INR and PTT
Assessment / Plan
Assessment / Plan
ASSESSMENT: 53 years old male treated with hydroxychloroquine outpatient for suspected lupus, presented with pleuritic chest pain 01/14/2024, and was found to have bilateral pulmonary embolism.
Impression/Plan:
Bilateral pulmonary emboli
-Suspected APLA vs lupus-induced coagulopathy.
-Peripheral vascular ultrasound with no evidence of DVT.
-No Hypoxia
-Pleuritic chest pain greatly improved.
-No prior diagnosis of lupus anticoagulant/APLA per hematology.
-Currently on 10 mg Coumadin with heparin bridge, INR currently 1.24, not therapeutic.
-Continue IV heparin and monitor PTT.
-APLA panel pending.
-Continue hydroxychloroquine for now.
-Eliquis would be okay given patient's obesity, unless APLA panel returns positive per hematology.
-Hematology appreciated.
-Continue monitoring on telemetry.
-Echocardiogram unremarkable.
Sinus tachycardia
-Likely due to PE.
-Continue IV metoprolol as needed.
Essential hypertension
-Labile blood pressure in a.m., currently controlled on nifedipine.
Possible UTI
-History of dysuria and polyuria with positive urine for leukocyte esterase and white blood cells with bacteria.
-Scan of the abdomen and pelvis did not show hydronephrosis. Will check bladder scan.
-Continue Ancef.
Low grade fever
-Continue Ancef.
-Blood culture pending, no growth to date.
Hyponatremia
-Resolved
-Likely hypervolemic hyponatremia
Anticipated Discharge: 24 - 48 hours
Subjective/Interval History
-
Date of Service: January 16, 2024
Objective Data
-
Labs:
Laboratory Results
01/16/24 01/16/24
15:18 22:40
APTT 160.1 H* Pending
Sodium 135
Potassium 3.7
Chloride 103
Carbon Dioxide 23
BUN 6 L
Creatinine 0.6 L
Glucose 97
Calcium 8.7
Vital Signs:
Vital Signs
Temp Pulse Resp BP Pulse Ox
97.4 F 104 20 148/83 95
01/16/24 15:41 01/16/24 15:41 01/16/24 15:41 01/16/24 15:41 01/16/24 15:41
I&O
01/15/24 01/16/24 01/17/24
06:59 06:59 06:59
Intake Total 2220 / 2220 4191 / 4191 900 / 900
Output Total 240 / 240
Balance 1979 4191 / 4191 900 / 900
Review of Systems
-
History Source: Patient
All other systems: Not reviewed unless documented
Constitutional: Reports No Symptoms; Denies Fever
EENT: Reports No Symptoms Reported
Respiratory: Reports No Symptoms; Denies Cough or Trouble Breathing
Cardiac: Reports No Symptoms; Denies Chest Pain or Palpitations
Abdomen/GI: Reports No Symptoms; Denies Abdominal Pain or Nausea
Physical Exam
-
General: No Apparent Distress and Comfortable
Respiratory: Clear to Auscultation and Non Labored Respirations; Negative Wheezes, Rales or Crackles
Cardiac: Regular Rhythm and S1/S2; Negative Murmur or Rub
GI: Soft and Other (Obese)
Musculoskeletal: Other (Complains of joint pains)
Skin: Warm
Neuro: Awake, Alert, AO x 3 and No Motor Deficits
Psych: Calm
Data Reviewed
-
CT Scan: Report Reviewed by me and Discussed with Physician
Ultrasound: Report Reviewed by me and Discussed with Physician
Labs: Labs Reviewed by me and Discussed with Physician
Old Records: Reviewed
[2024-01-16 19:40] VITALS: BP 136/94
--- NOTE | 2024-01-16 22:07 | W.PN.ONC2 ---
Today's Communication / Plan
-
Pt does not have known history of APLA or lupus anticoagulation.
He has started warfarin while we await APLA panel. If negative, he can switch to Eliquis. His weight of nearly 400 lbs does not preclude treatment with Eliquis.
Impression
Impression
Pulmonary embolus without clear provocation
History of lupus, elevated sedimentation rate
Obesity
Sinus tachycardia
Plan
Plan
Patient with normal PTT on presentation
Evaluate for lupus anticoagulant, anticardiolipin antibody and beta-2 glycoprotein titers
Outpatient complete hypercoagulability profile
Subjective/Objective
Chief Complaint
Heme F/U unprovoked PE
Subjective
Denies complaint currently. Pt states he is very physically active despite his weight. There were no provoking factors for clot. No family history of DVT/PE. Only family history of cancer is father who of stomach cancer at 96. He has never
undergone colonoscopy. His sister is a [employer] Repairer/Oncologist in [place]. Regarding the lupus history, he states he was diagnosed in 04/2023 with 'a little bit of lupus and a lot of arthritis.'
Vital Signs:
Vital Signs
Temp Pulse Resp BP Pulse Ox
99.8 F 107 20 136/94 95
01/16/24 19:40 01/16/24 19:40 01/16/24 19:40 01/16/24 19:40 01/16/24 19:40
Lab Results:
Laboratory Data
WBC 6.3 10^3/uL (4.8-10.8) 01/16/24 06:34
Hgb 14.2 g/dL (13.0-18.0) 01/16/24 06:34
Plt Count 123 10^3/uL (130-400) L 01/16/24 06:34
PT 15.4 Sec (11.4-14.6) H 01/16/24 06:34
INR 1.24 01/16/24 06:34
APTT 160.1 Sec (23.4-35.0) H* 01/16/24 15:18
eGFR > 60.00 01/16/24 15:18
Physical Exam
HEENT: Moist Mucous Membranes; No Jaundice
Cardiology: Normal Sinus Rhythm, S1 and S2
Pulmonary: Clear; No Wheezes
GI: Soft; No Distended
Extremities: No C/C/E
Neuro: Non Focal
Review of Systems
Review of Systems
Constitutional: Denies Fever or Fatigue
Head: Denies Sore Throat or Hearing Loss
Respiratory: Reports Dyspnea and Cough
Cardiovascular: Denies Chest Pain or Palpitations
Gastrointestinal: Denies Nausea/Vomiting or Diarrhea
Skin: Denies Rash or Pruritis
Neurological: Denies Headache or Numbness
Psychiatric: Denies Depression or Insomnia
Hem/Lymphatic: Denies Easy Bruising or Night Sweats
Orders
Orders
Orders From Last 24 Hours
01/16/24 07:32
Add On- LAB Routine
01/16/24 12:16
Hemetest Stools As Directed
[2024-01-16 22:33] LABS: APTT 122.6 Sec (23.4-35.0)
[2024-01-16 23:05] VITALS: BP 148/89
[2024-01-17] MEDS: ANCEF 5 IV ×3 (03:13→17:37)
[2024-01-17 03:55] VITALS: BP 148/88
[2024-01-17 06:48] LABS: % Basophils 0.2 % (0-2); % Immature Granulocytes 0.3 % (0-0.5); % Lymphocytes 13.8 % (20.5-51.1); % Monocytes 16.8 % (1.7-9.3); % Neutrophils 67.9 % (42.2-75.2); Absolute Eosinophils 0.1 10^3/uL (0-0.7); Absolute Lymphocytes 0.8 10^3/uL (1.2-3.4); Absolute Neutrophils 4.1 10^3/uL (1.4-6.5); Hematocrit 39.5 % (39.0-52.0); Hemoglobin 13.1 g/dL (13.0-18.0); Mean Corp Hgb Conc. 33.2 g/dL (33.0-37.0); Mean Corpuscular Hgb 27.6 pg (27.0-31.0); Mean Corpuscular Volume 83.3 fL (80.0-94.0); Mean Platelet Volume 11.7 fL (7.4-10.4); Nucleated Red Blood Cells % 0 % (-); Platelet Count 149 10^3/uL (130-400); Red Blood Cell Count 4.74 10^6/uL (4.70-6.10); White Blood Cell Count 6.1 10^3/uL (4.8-10.8)
[2024-01-17 06:51] LABS: INR 1.51
[2024-01-17 06:52] LABS: APTT 89.4 Sec (23.4-35.0)
[2024-01-17 06:57] LABS: Blood Urea Nitrogen 5 mg/dl (9-20); Calcium 8.5 mg/dl (8.4-10.2); Carbon Dioxide 22 mmol/L (22-30); Chloride 105 mmol/L (98-107); Glucose 104 mg/dl (70-99); Potassium 3.8 mmol/L (3.5-5.1); Sodium 136 mmol/L (135-145); eGFR > 60.00
[2024-01-17 07:34] VITALS: BP 123/81
[2024-01-17] MEDS: PLAQUENIL 400 MG PO (09:07)
[2024-01-17] MEDS: PROCARDIA XL (EXTENDED RELEASE) 60 MG PO (09:08)
--- NOTE | 2024-01-17 09:20 | W.PN.HOSP.TC ---
Addendum entered and electronically signed by Jeannie Andersen MD 01/17/24 17:45:
Patient seen and examined independently--agree with plan as set forth by Dr. Young
GENERAL: well developed, well nourished, obese male in no apparent distress
HEENT: NC/AT--no O2 requirements
HEART: regular rate and rhythm, +S1, +S2
LUNGS : clear to auscultation bilaterally
ABDOM: soft, nontender, nondistended, + bowel sounds
EXT: no cyanosis, clubbing, or edema
NEUROLOGIC: grossly intact
Bilateral pulmonary emboli--Suspected APLA vs lupus-induced coagulopathy (no prior diagnosis of either)--Peripheral vascular ultrasound with no evidence of DVT---No Hypoxia--Pleuritic chest pain greatly improved--Currently on 10 mg Coumadin with
heparin bridge, INR currently 1.51, not therapeutic--Continue IV heparin and monitor PTT---APLA panel pending, if negative then would be candidate for Eliquis, for now cont coumadin--Continue hydroxychloroquine for now--Hematology
appreciated--Echocardiogram unremarkable.
Sinus tachycardia--Likely due to PE--Continue IV metoprolol as needed.
Essential hypertension--Labile blood pressure in a.m., currently controlled on nifedipine.
Possible UTI--History of dysuria and polyuria with positive urine for leukocyte esterase and white blood cells with bacteria---Scan of the abdomen and pelvis did not show hydronephrosis. Will check bladder scan-- Ancef to keflex at d/c
Low grade fever--Continue Ancef--Blood culture pending, no growth to date.
Hyponatremia--Resolved-Likely hypervolemic hyponatremia
Code status -- FULL CODE
Received telephone call from patient's [id number] who is a battery assembler dry cell/oncologist at [facility]. She is in full agreement that until proven otherwise, we must consider that this is lupus anticoagulant and/or antiphospholipid
antibody syndrome and has encouraged him to go home with Lovenox shots and Coumadin. (Patient adamantly does not want to stay longer in the hospital on IV heparin drip). Patient received teaching by nursing prior to discharge. He should continue
his Coumadin tonight. I did speak with the hematology lab who stated that it should be 3 to 5 days for results (this is a send out test) before the antiphospholipid antibody and lupus anticoagulant panel returns.
Original Note:
Today's Communication/Plan
-
Continue hydroxychloroquine
Continue heparin bridging to Coumadin
Monitor INR and APTT
Continue antibiotics
Discharge planning
Assessment / Plan
Assessment / Plan
ASSESSMENT: 53 years old male treated with hydroxychloroquine outpatient for suspected lupus, presented with pleuritic chest pain 01/14/2024, and was found to have bilateral pulmonary embolism.
Impression/Plan:
Bilateral pulmonary emboli
-History of lupus without prior diagnosis of lupus or APLA.
-Elevated ESR on presentation but no clear provocative source of emboli.
-Suspected APLA vs lupus-induced coagulopathy.
-Peripheral vascular ultrasound with no evidence of DVT.
-Echocardiography unremarkable.
-Sinus tachycardia with no Hypoxia on presentation.
-Pleuritic chest pain greatly improved.
-Currently on 10 mg Coumadin with heparin bridge, INR currently 1.51, not therapeutic.
-Patient prefers to continue bridging at home.
-Continue to bridge, monitor INR until therapeutic, continue Coumadin.
-APLA panel pending, if negative, patient will be a candidate for Eliquis. Please follow-up with oncology for pending results.
-Continue hydroxychloroquine for now.
-Hematology appreciated.
-Continue monitoring on telemetry.
Sinus tachycardia
-Improved today
-Likely due to PE.
-Continue IV metoprolol as needed.
Essential hypertension
-Improved today.
-Continue to monitor.
Possible UTI
-History of dysuria and polyuria with positive urine for leukocyte esterase and white blood cells with bacteria.
-CT scan of the abdomen and pelvis did not show hydronephrosis.
-Patient currently afebrile with normal white counts.
-Continue Ancef.
Low grade fever
-Resolved
-Blood culture pending, no growth to date.
Hyponatremia
-Resolved
-Likely hypervolemic hyponatremia
Anticipated Discharge: Today
Subjective/Interval History
-
Date of Service: January 17, 2024
Objective Data
-
Labs:
Laboratory Results
01/16/24 01/17/24 01/17/24
22:16 06:00 06:25
WBC 6.1
Hgb 13.1
Hct 39.5
Plt Count 149 D
PT 18.0 H
INR 1.51
APTT 122.6 H Cancelled 89.4 H
Sodium 136
Potassium 3.8
Chloride 105
Carbon Dioxide 22
BUN 5 L
Creatinine 0.6 L
Glucose 104 H
Calcium 8.5
01/17/24
13:00
WBC
Hgb
Hct
Plt Count
PT
INR
APTT Pending
Sodium
Potassium
Chloride
Carbon Dioxide
BUN
Creatinine
Glucose
Calcium
Vital Signs:
Vital Signs
Temp Pulse Resp BP Pulse Ox
98.0 F 102 18 123/81 93
01/17/24 07:34 01/17/24 07:34 01/17/24 07:34 01/17/24 07:34 01/17/24 07:34
I&O
01/16/24 01/17/24 01/18/24
06:59 06:59 06:59
Intake Total 4191 / 4191 2057
Balance 4191 / 4191 2057
Review of Systems
-
History Source: Patient
All other systems: Not reviewed unless documented
Constitutional: Reports No Symptoms; Denies Fever
EENT: Reports No Symptoms Reported
Respiratory: Reports No Symptoms; Denies Cough or Trouble Breathing
Cardiac: Reports No Symptoms; Denies Chest Pain or Palpitations
Abdomen/GI: Reports No Symptoms; Denies Abdominal Pain or Nausea
Hematologic / Lymphatic: Reports No Symptoms
Physical Exam
-
General: No Apparent Distress and Comfortable
HEENT: Normocephalic, Atraumatic and Moist Mucous Membranes
Respiratory: Clear to Auscultation and Non Labored Respirations; Negative Wheezes, Rales or Crackles
Cardiac: Regular Rhythm and S1/S2; Negative Murmur or Rub
GI: Soft, Nontender and Other (Obese)
Musculoskeletal: No Clubbing, No Cyanosis and No Edema
Skin: Warm
Neuro: Awake, Alert, AO x 3 and No Motor Deficits
Psych: Calm
Data Reviewed
-
CT Scan: Report Reviewed by me and Discussed with Physician
Ultrasound: Report Reviewed by me and Discussed with Physician
Labs: Labs Reviewed by me and Discussed with Physician
Old Records: Reviewed
--- NOTE | 2024-01-17 09:41 | CM ---
Patient seen at bedside. Patient very eager to consider Eliquis due to the frequent blood work with Coumadin. CM will confirm with physician and call to confirm cost with pharmacy. CM will continue to follow for discharge planning needs.
Plan; home with no needs; pending cost of medication verification
[2024-01-17] MEDS: HEPARIN 25000 UNITS/250 ML IV (10:10)
[2024-01-17 11:15] VITALS: BP 114/80
[2024-01-17] MEDS: NSS IV (13:03)
--- NOTE | 2024-01-17 14:47 | W.DCSUMMARY ---
Addendum entered and electronically signed by Jeannie Andersen MD 01/17/24 19:54:
Read fully and agree with the discharge summary has put forth by Dr. Young.
One clarification is patient was started on IV heparin drip with conversion to Coumadin. At discharge it was decided to pursue Lovenox bridge since the patient did not wish to stay in the hospital until his INR became therapeutic.
Pending results are lupus anticoagulant and antiphospholipid antibody.
I also spoke with the patient's [id number] who is a automotive service technician/oncologist at the [facility]. She agrees with continuing Coumadin with Lovenox bridge until final results of the lupus anticoagulant and antiphospholipid antibody
results are back.
Time for discharge 43 minutes.
Original Note:
Discharge Summary
Discharge Data
Date of Admission: 01/14/24
Date of Discharge: 01/17/24
-
Pending Results: Yes
Hospital Course
Discharging Physician : Dr. Ganesh Manuel, Dr. Hannah Nobles
Disposition : Home
Primary care physician : Dr. Dada Simpson
Principal Discharge diagnosis : Bilateral pulmonary embolism
Chronic Discharge diagnosis : Essential hypertension, UTI, hyponatremia, lupus
Hospital Course : Patient is a 53-year-old male with past medical history of lupus (treated with hydroxychloroquine), uncontrolled hypertension and rheumatoid arthritis, who was admitted at [facility] with pleuritic chest pain and was found
to have bilateral pulmonary embolism on CT angiography of chest and urinalysis showed possible UTI. Patient was admitted for further workup due to history of lupus, and was initiated on Lovenox bridge and Coumadin while definitive diagnosis for
lupus was being pursued.
While in the hospital, he was seen in consult with hematology/oncology, his blood cultures grew no organism and the peripheral vascular ultrasound shows no evidence of DVT. His INR continued to progress towards therapeutic range, however, patient
decided to continue Lovenox bridge at home and agreed to follow-up with hematology outpatient to obtain results of the pending tests. Patient was given Lovenox teaching and was instructed to follow-up with PCP in less than 1 week for further
instructions. His pleuritic chest pain has greatly improved, vitals are stable, WBC count within normal limits. Patient has been assessed and is stable for discharge.
Important imaging findings :
Chest CT 01/14/2024: Limited by respiratory motion degradation. However, lack of contrast enhancement in the left lower lobe segmental pulmonary artery, consistent with pulmonary embolism/thrombus.
Artifact versus tiny pulmonary emboli in the right lower lobe and right upper lobe.
Findings equivocal for right ventricular heart strain given the stable RV to LV ratio of 1.6. However, no reflux of injected contrast material into the inferior vena cava.
Minimal left pleural effusion and left lower lobe opacity which could represent atelectasis or pneumonia.
Discharge Plan
-
Patient Disposition: Home (Routine Discharge)
Discharge Diagnosis/Procedures: Pulmonary Embolism, Acute UTI, lupus, hypertension.
Condition: Good
Diet: Regular
Additional Diets: If taking Coumadin, maintain the same type of diet daily to keep INR optimal.
Activity: No restrictions
Driving Restrictions: As prior to admission
Bathing Restrictions: None
Blood Work: Follow-up with your primary care and automotive service technician/oncologist to Check INR in 2 days until therapeutic between 2.5-3.5, Preferably above 3.0. Continue Coumadin and maintain therapeutic dose.
Referrals:
[facility] [Provider Group] - in one to two months (call for appointment)
Sulema Goode MD [Active] - in three to four weeks
Dada Simpson MD [Family Provider] - in less than 1 week
Additional Discharge Medication Instructions: Continue cephalexin for 5 more days and follow-up with his PCP. Follow-up with oncology and primary care for pending results. Eliquis may be initiated if results are negative.
Prescriptions:
New
nifedipine 60 mg Tablet Extended Release
60 mg PO DAILY Qty: 30 0RF
warfarin [Jantoven] 10 mg Tablet
10 mg PO QPM Qty: 60 0RF
enoxaparin [Lovenox] 150 mg/mL syringe
150 mg SC Q12H Qty: 60 0RF
cephalexin 500 mg tablet
500 mg PO TID Qty: 15 0RF
Continued
ascorbic acid (vitamin C) [Vitamin C] 1,000 mg Tablet
1,000 mg PO DAILY
acetaminophen [Tylenol Extra Strength] 500 mg Tablet
1,000 mg PO DAILYPRN PRN (Reason: mild pain)
hydroxychloroquine 200 mg Tablet
400 mg PO DAILY
Discontinued
amlodipine 10 mg Tablet
10 mg PO DAILY
Discharge Orders:
Discharge Patient (As Directed); Ordered 01/17/24
Ordered By: Giuliano Young
Discharge Date and Time
Print Language: INDONESIAN
[2024-01-17 15:15] VITALS: BP 144/98
[2024-01-17] MEDS: LOVENOX 150 MG SC (16:20)
[2024-01-17 17:22] LABS: Beta-2-Glycoprotein I Ab. IgG <10 SGU (<=20); Beta-2-Glycoprotein I Ab. IgM <10 SMU (<=20)
[2024-01-17 17:30] LABS: Cardiolipin IgM Antibody <10 MPL (<=12); Cardiolipin Igg Antibody <10 GPL (<=14)
[2024-01-17] MEDS: COUMADIN 10 MG PO (17:37)
[2024-01-18 16:49] LABS: Anti-Xa Qualitative Interp Not Present (Not Present); Anticoagulant Med Neutralizati DOAC-Stop (Not Performed); Hexagonal Phospholipid Confirm 15.5 s (<=7.9); Neutralized dRVTT Screen Ratio Not Performed (<=1.20); PTT-LA Ratio 1.45 (<=1.20); Prothrombin Time 15.5 s (12.0-15.5); Thrombin Time 23.3 s (<=19.5); dRVTT 1.1 Mix Ratio Not Performed (<=1.20); dRVTT Confirmation Ratio Not Performed (<=1.20); dRVTT Screen Ratio 1.15 (<=1.20)
== END 2024-01-17 18:20 | disposition home or self-care (01) | DRG 176 ==
LOC: 4 WEST ACU 15:43
PROVIDERS: Nurse Practitioner; Student in an Organized Health Care Education/Training Program; ADMITTING PHYSICIAN Internal Medicine; ATTENDING PHYSICIAN Internal Medicine; CONSULT PHYSICIAN Internal Medicine Hematology & Oncology; EMERGENCY PHYSICIAN Emergency Medicine; FAMILY PHYSICIAN Family Medicine
DX: I26.99 Other pulmonary embolism without acute cor pulmonale (principal); N39.0 Urinary tract infection, site not specified; E87.1 Hypo-osmolality and hyponatremia; Z68.42 Body mass index [BMI] 45.0-49.9, adult; D68.9 Coagulation defect, unspecified; I10 Essential (primary) hypertension; E66.01 Morbid (severe) obesity due to excess calories; M32.9 Systemic lupus erythematosus, unspecified; R00.0 Tachycardia, unspecified; M06.9 Rheumatoid arthritis, unspecified; Z87.440 Personal history of urinary (tract) infections
CPT/HCPCS: 71275; 74177; 80048; 80053; 81003; 81015; 82728; 83540; 83550; 84484; 85025; 85027; 85379; 85520; 85598; 85610; 85613; 85670; 85730; 86146; 86147; 87040; 87086; 93005; 93306; 93970; 96365; 99285; Q9950; Q9967

== ENCOUNTER 2024-01-29 14:56 | Emergency (ER) | payer BC, SELFPAY ==
[2024-01-29 14:58] VITALS: BP 135/93
[2024-01-29 16:37] VITALS: BP 127/82
[2024-01-29 16:37] LABS: % Basophils 0.3 % (0-2); % Eosinophils 0.6 % (0-6); % Immature Granulocytes 0.3 % (0-0.5); % Lymphocytes 30.3 % (20.5-51.1); % Monocytes 12.1 % (1.7-9.3); % Neutrophils 56.4 % (42.2-75.2); Absolute Lymphocytes 1.1 10^3/uL (1.2-3.4); Absolute Monocytes 0.4 10^3/uL (0.1-0.6); Absolute Neutrophils 2.1 10^3/uL (1.4-6.5); Hematocrit 41.3 % (39.0-52.0); Hemoglobin 13.9 g/dL (13.0-18.0); Mean Corp Hgb Conc. 33.7 g/dL (33.0-37.0); Mean Corpuscular Hgb 27.4 pg (27.0-31.0); Mean Corpuscular Volume 81.5 fL (80.0-94.0); Mean Platelet Volume 10.5 fL (7.4-10.4); Nucleated Red Blood Cells % 0 % (-); Platelet Count 191 10^3/uL (130-400); Red Blood Cell Count 5.07 10^6/uL (4.70-6.10); Red Cell Dist. Width 14.7 % (11.5-14.5); White Blood Cell Count 3.6 10^3/uL (4.8-10.8)
[2024-01-29 16:45] LABS: INR 4.74; PT 44.7 Sec (11.4-14.6)
[2024-01-29 16:46] LABS: APTT 79.4 Sec (23.4-35.0)
--- NOTE | 2024-01-29 17:02 | ED.GENMED ---
History of Present Illness
General
Chief Complaint: Abnormal Lab Value
Source: patient
Time Seen by Provider: 01/29/24 15:41
History of Present Illness
History of Present Illness:
53-year-old male presenting emergency department for evaluation after he had outpatient blood work yesterday to check his INR and came back at greater than 8. Patient is currently taking Coumadin and Lovenox after he was recently diagnosed for DVT
and PE. He has no complaints at this time. He states that the only bleeding/bruising that he is noted is the injection sites for where he is injecting his Lovenox. No other concerns at this time.
Past History
Past History
ED Past Medical History: HTN and Other (Lupus)
ED Past Surgical History: None
Patient has exhibited threatening behavior?: No
PSI?: No
Social History
Tobacco: Non-smoker
Alcohol: None
Drug: None
Personal:
Living: with family
Employment: Employed
Review of Systems
Review of Systems
All Other Systems: ROS reviewed and negative except as documented in HPI and ROS
Phy Exam
Physical Exam
Physical Exam:
GENERAL: Alert , in no apparent distress
EYE: conjunctiva clear
Head: Normocephalic atraumatic
NECK: Supple,
ENT: mmm.
LUNGS: no acute respiratory distress
NEUROLOGICAL: Alert and oriented
SKIN: Warm and dry, skin intact. Small area of ecchymosis to the bilateral lower abdomen at the Lovenox injection sites
MUSCULOSKELETAL: well perfused.
PSYCH: Normal and appropriate interaction.
Scores
Heart Failure Risk
Heart Failure Risk Score: Not Applicable
Heart Score for Chest Pain Patients
STEMI patient?: Not applicable
Withdrawal Assessment of Alcohol
Withdrawal Assessment Completed?: Not applicable
Course
Orders/Labs/Results
Orders:
Orders
01/29/24 16:26
Basic Metabolic Panel Urgent
Complete Blood Count/With Diff Urgent
PTT Urgent
Prothrombin Time Urgent
Abnormal Lab Results
01/29/24
16:26
WBC 3.6 L 10^3/uL
(4.8-10.8)
RDW 14.7 H %
(11.5-14.5)
MPV 10.5 H fL
(7.4-10.4)
Absolute Lymphs (auto) 1.1 L 10^3/uL
(1.2-3.4)
Monocytes % 12.1 H %
(1.7-9.3)
PT 44.7 H Sec
(11.4-14.6)
APTT 79.4 H Sec
(23.4-35.0)
01/29/24 16:26
Vital Signs
Initial and Last Documented VS:
Initial Vital Signs
Temp Pulse Resp BP Pulse Ox
98.9 F 96 18 135/93 99
01/29/24 14:58 01/29/24 14:58 01/29/24 14:58 01/29/24 14:58 01/29/24 14:58
Last Documented Vital Signs
Temp Pulse Resp BP Pulse Ox
98.9 F 90 18 127/82 100
01/29/24 14:58 01/29/24 16:37 01/29/24 14:58 01/29/24 16:37 01/29/24 16:37
MDM/Problems Addressed
MDM/Problems Addressed:
53-year-old male present emergency department for evaluation after he had outpatient labs that showed an elevated INR of greater than 8. Currently on Coumadin and Lovenox for DVT and PE. Labs ordered today and patient's INR is currently 4.74. He
is supposed to take 2 doses of Coumadin tonight. I advised he hold this as his INR supposed to between 2-1/2-3-1/2. He will still take his Lovenox. Patient has an appointment scheduled with his primary care tomorrow and will follow-up then for
further instructions on what to do with his Coumadin. Aware of return precautions.
*Pulse Oximetry
Patient hypoxic: no
*Critical Care Note
Total Time (30-74mins, 75-104mins- exclusive of procedures): Not Applicable
Data Reviewed
Review of Other/Old Records Reveals: Labs
ED Attending Note
-
Portions of this chart may have been created with voice recognition software.� Occasional wrong word or��sound alike� substitutions may have occurred due to the inherent limitations of voice recognition software.
Discharge Plan
Departure
Patient Disposition: Home (Routine Discharge)
Date of Disposition: 01/29/24
Time of Disposition: 17:02
Patient with high blood pressure during this ER visit?: No
Discharge Problem:
Supratherapeutic INR
Instructions: Prothrombin time and INR (PT/INR)
Prescriptions:
No Action
ascorbic acid (vitamin C) [Vitamin C] 1,000 mg Tablet
1,000 mg PO DAILY
acetaminophen [Tylenol Extra Strength] 500 mg Tablet
1,000 mg PO DAILYPRN PRN (Reason: mild pain)
hydroxychloroquine 200 mg Tablet
400 mg PO DAILY
nifedipine 60 mg Tablet Extended Release
60 mg PO DAILY Qty: 30 0RF
warfarin [Jantoven] 10 mg Tablet
10 mg PO QPM Qty: 60 0RF
enoxaparin [Lovenox] 150 mg/mL syringe
150 mg SC Q12H Qty: 60 0RF
cephalexin 500 mg tablet
500 mg PO TID Qty: 15 0RF
Referrals:
Dada Simpson MD [Family Provider] -
Interventions
Interventions:
*Risk Screen - Suicide Last Done: 01/29/24 14:58
*General Assessment Last Done: 01/29/24 14:58
*Neglect/Abuse Screening Last Done: 01/29/24 14:58
ED- Fall Risk Assessment Last Done: 01/29/24 16:38
Discharge Date and Time
Print Language: BENGALI
[2024-01-29 17:06] LABS: Blood Urea Nitrogen 9 mg/dl (9-20); Calcium 8.8 mg/dl (8.4-10.2); Carbon Dioxide 22 mmol/L (22-30); Chloride 104 mmol/L (98-107); Glucose 101 mg/dl (70-99); Sodium 134 mmol/L (135-145); eGFR > 60.00
== END 2024-01-29 17:12 | disposition home or self-care (01) ==
LOC: EMR 14:56
PROVIDERS: Physician Assistant Medical; EMERGENCY PHYSICIAN Emergency Medicine; FAMILY PHYSICIAN Family Medicine
DX: R79.1 Abnormal coagulation profile (principal); I10 Essential (primary) hypertension; Z79.01 Long term (current) use of anticoagulants
CPT/HCPCS: 99283; 80048; 85025; 85610; 85730

== ENCOUNTER → 2024-04-09 13:36 | Outpatient (REF) | payer BC, SELFPAY | LOC: HWRAD 13:36 | PROVIDERS: ATTENDING PHYSICIAN Nurse Practitioner Family; FAMILY PHYSICIAN Student in an Organized Health Care Education/Training Program | DX: Z87.01 Personal history of pneumonia (recurrent) (principal) | CPT/HCPCS: 71046 ==

== ENCOUNTER 2024-12-09 13:21 | Emergency (ER) | payer BC, SELFPAY ==
[2024-12-09] VITALS (7 sets, daily range): BP systolic 117–182; BP diastolic 80–138
[2024-12-09 15:06] LABS: Hematocrit 43.5 % (39.0-52.0); Hemoglobin 13.8 g/dL (13.0-18.0); Mean Corp Hgb Conc. 31.7 g/dL (33.0-37.0); Mean Corpuscular Hgb 28.8 pg (27.0-31.0); Mean Corpuscular Volume 90.6 fL (80.0-94.0); Mean Platelet Volume 11.3 fL (7.4-10.4); Platelet Count 102 10^3/uL (130-400); Red Cell Dist. Width 17.9 % (11.5-14.5)
[2024-12-09 15:09] LABS: ALT (SGPT) 21 U/L (0-50); AST (SGOT) 27 U/L (17-59); Albumin 4.2 g/dl (3.5-5.0); Alkaline Phosphatase 95 U/L (38-126); Blood Urea Nitrogen 9 mg/dl (9-20); Calcium 8.7 mg/dl (8.4-10.2); Carbon Dioxide 28 mmol/L (22-30); Chloride 104 mmol/L (98-107); Glucose 108 mg/dl (70-99); Potassium 4.4 mmol/L (3.5-5.1); Sodium 139 mmol/L (135-145); Total Bilirubin 0.9 mg/dl (0.2-1.3); Total Protein 8.2 g/dl (6.3-8.2); eGFR > 60.00
[2024-12-09 15:20] LABS: NT-proBNP 40.9 pg/ml; Troponin I 0.017 ng/ml
[2024-12-09 15:45] LABS: Absolute Neutrophils -Man Diff 1.9 10^3/uL (1.4-6.5); Atypical Lymphocytes 2 %; Band Neutrophils 3 % (0-3); Eosinophils 3 % (0-6); Lymphocytes 15 % (20-51); Monocytes 15 % (2-9); Segmented Neutrophils 62 % (42-75)
[2024-12-09 15:46] LABS: Normal RBC Morphology Yes; Platelets Checked Yes; Total Cells Counted 100
[2024-12-09] MEDS: APRESOLINE 10 MG IV (16:31)
--- NOTE | 2024-12-09 16:41 | ED.GENMED ---
History of Present Illness
<Jesse Au PA-C - Last Filed: 12/09/24 18:00>
General
Chief Complaint: Chest Pain
Time Seen by Provider: 12/09/24 13:50
History of Present Illness
History of Present Illness:
54-year-old male with history of lupus and PE currently on Xarelto presents to the emergency department for evaluation of chest pain and shortness of breath that has been gradually worsening for the past 4 days. Feels as though he has difficulty
breathing when walking downstairs. Chest pain remains even at rest currently. No associated fever, chills, sweats, coughing, nausea, or vomiting. Chest pain does radiate to the left scapula. Feels distinctly different than his prior PE symptoms.
He notes that he has been checking his blood pressure religiously over the past several days and has noted persistent hypertension greater than 170/110, he checks his blood pressure multiple times each day chronically and is never seeing readings
this high.
Past History
<Jesse Au PA-C - Last Filed: 12/09/24 18:00>
Past History
ED Past Medical History: HTN and Other (Lupus)
ED Past Surgical History: None
Patient has exhibited threatening behavior?: No
PSI?: No
Social History
Tobacco: Non-smoker
Alcohol: None
Drug: None
Personal:
Living: with family
Employment: Employed
Review of Systems
<Jesse Au PA-C - Last Filed: 12/09/24 18:00>
Review of Systems
Allergies reviewed?: Yes
All Other Systems: ROS reviewed and negative except as documented in HPI and ROS
Phy Exam
<Jesse Au PA-C - Last Filed: 12/09/24 18:00>
Physical Exam
Physical Exam:
GEN: Well appearing, NAD, WDWN
HEENT: Oral mucosa moist, no scleral icterus
Cardiac: Regular rate and rhythm, no murmurs
Lung: No respiratory distress, no tachypnea, lungs clear to auscultation bilaterally
MSK: No gross deformity or injuries
Skin: Good color, no pallor or jaundice, no rashes
Neuro: AO x3, moves all extremities freely
Psych: Calm, cooperative
Scores
<Katherine Hills PA-C - Last Filed: 12/09/24 18:52>
Heart Score for Chest Pain Patients
STEMI patient?: Not applicable
Course
<Jesse Au PA-C - Last Filed: 12/09/24 18:00>
Orders/Labs/Results
Orders:
Orders
12/09/24 13:23
EKG [Electrocardiogram (*1)] Urgent
Reason for Study: Chest Pain
EKG- Treatment ONCE
12/09/24 14:39
Complete Blood Count/With Diff Urgent
Comprehensive Metabolic Panel Urgent
Manual Differential Urgent
NT-proBNP Urgent
Troponin I Urgent
12/09/24 15:26
EKG- Treatment ONCE
12/09/24 15:27
CR Chest - 2 Views Urgent
Comment:
Reason For Exam: chest pain SOB
12/09/24 15:53
HydrALAZINE [Apresoline] 10 mg IV NOW STA
12/09/24 17:30
Electrocardiogram (*1) Urgent
Reason for Study: Chest Pain
12/09/24 17:36
Troponin I Urgent
Abnormal Lab Results
12/09/24
14:39
WBC 3.0 L 10^3/uL
(4.8-10.8)
MCHC 31.7 L g/dL
(33.0-37.0)
RDW 17.9 H %
(11.5-14.5)
Plt Count 102 L 10^3/uL
(130-400)
MPV 11.3 H fL
(7.4-10.4)
Lymphocytes (Manual) 15 L %
(20-51)
Monocytes (Manual) 15 H %
(2-9)
Glucose 108 H mg/dl
(70-99)
12/09/24 14:39
12/09/24 14:39
Vital Signs
Initial and Last Documented VS:
Initial Vital Signs
Temp Pulse Resp BP Pulse Ox
98.0 F 91 16 152/91 99
12/09/24 13:27 12/09/24 13:27 12/09/24 13:27 12/09/24 13:27 12/09/24 13:27
Last Documented Vital Signs
Temp Pulse Resp BP Pulse Ox
98.0 F 84 26 123/98 99
12/09/24 13:27 12/09/24 18:00 12/09/24 18:00 12/09/24 18:00 12/09/24 18:00
<Katherine Hills PA-C - Last Filed: 12/09/24 18:52>
Orders/Labs/Results
Orders:
Orders
12/09/24 13:23
EKG [Electrocardiogram (*1)] Urgent
Reason for Study: Chest Pain
EKG- Treatment ONCE
12/09/24 14:39
Complete Blood Count/With Diff Urgent
Comprehensive Metabolic Panel Urgent
Manual Differential Urgent
NT-proBNP Urgent
Troponin I Urgent
12/09/24 15:26
EKG- Treatment ONCE
12/09/24 15:27
CR Chest - 2 Views Urgent
Comment:
Reason For Exam: chest pain SOB
12/09/24 15:53
HydrALAZINE [Apresoline] 10 mg IV NOW STA
12/09/24 17:30
Electrocardiogram (*1) Urgent
Reason for Study: Chest Pain
12/09/24 17:36
Troponin I Urgent
Abnormal Lab Results
12/09/24
14:39
WBC 3.0 L 10^3/uL
(4.8-10.8)
MCHC 31.7 L g/dL
(33.0-37.0)
RDW 17.9 H %
(11.5-14.5)
Plt Count 102 L 10^3/uL
(130-400)
MPV 11.3 H fL
(7.4-10.4)
Lymphocytes (Manual) 15 L %
(20-51)
Monocytes (Manual) 15 H %
(2-9)
Glucose 108 H mg/dl
(70-99)
12/09/24 14:39
12/09/24 14:39
Vital Signs
Initial and Last Documented VS:
Initial Vital Signs
Temp Pulse Resp BP Pulse Ox
98.0 F 91 16 152/91 99
12/09/24 13:27 12/09/24 13:27 12/09/24 13:27 12/09/24 13:27 12/09/24 13:27
Last Documented Vital Signs
Temp Pulse Resp BP Pulse Ox
98.0 F 84 26 123/98 99
12/09/24 13:27 12/09/24 18:00 12/09/24 18:00 12/09/24 18:00 12/09/24 18:00
<Katherine Hills PA-C - Last Filed: 12/09/24 18:52>
*Critical Care Note
Total Time (30-74mins, 75-104mins- exclusive of procedures): Not Applicable
<Katherine Hills PA-C - Last Filed: 12/09/24 18:52>
Update Note
Update Note:
Update 6:49 PM: Received patient in signout. Repeat troponin undetectable with nonischemic EKG. On reassessment�patient is feeling well denies any shortness of breath or current chest pain. He is ambulating without difficulty to the bathroom.
Headache has improved. Vital signs have normalized. Workup in ED negative including troponin undetectable x2. Do not suspect ACS. Patient is compliant with Xarelto - do not suspect PE. At this point�feel patient stable for discharge home. Will
place patient on chest pain hotline and have him follow with PCP tomorrow. Advised to continue medication as prescribed and monitor blood pressure at home. Very strict return precautions discussed. Patient comfortable with plan.
ED Attending Note
<Jesse Au PA-C - Last Filed: 12/09/24 18:00>
-
Portions of this chart may have been created with voice recognition software.� Occasional wrong word or��sound alike� substitutions may have occurred due to the inherent limitations of voice recognition software.
Discharge Plan
Departure
Discharge Problem:
Chest pain
Instructions: Chest Pain CBC Follow Up
Prescriptions:
No Action
ascorbic acid (vitamin C) [Vitamin C] 1,000 mg Tablet
1,000 mg PO DAILY
acetaminophen [Tylenol Extra Strength] 500 mg Tablet
1,000 mg PO DAILYPRN PRN (Reason: mild pain)
hydroxychloroquine 200 mg Tablet
400 mg PO DAILY
nifedipine 60 mg Tablet Extended Release
60 mg PO DAILY Qty: 30 0RF
warfarin [Jantoven] 10 mg Tablet
10 mg PO QPM Qty: 60 0RF
enoxaparin [Lovenox] 150 mg/mL syringe
150 mg SC Q12H Qty: 60 0RF
cephalexin 500 mg tablet
500 mg PO TID Qty: 15 0RF
Referrals:
Vin Tiwari DO [Family Provider] -
Interventions
Interventions:
*Risk Screen - Suicide Last Done: 12/09/24 13:29
*General Assessment Last Done: 12/09/24 13:23
*Neglect/Abuse Screening Last Done: 12/09/24 13:27
*ED- Fall Risk Assessment Last Done: 12/09/24 13:23
ED- Cardiac Assessment Last Done: 12/09/24 13:23
Discharge Date and Time
Print Language: MALAYSIAN
[2024-12-09 18:17] LABS: Troponin I < 0.012 ng/ml
== END 2024-12-09 19:32 | disposition home or self-care (01) ==
LOC: EMR 13:21
PROVIDERS: Physician Assistant; EMERGENCY PHYSICIAN Emergency Medicine; FAMILY PHYSICIAN Student in an Organized Health Care Education/Training Program
DX: R07.89 Other chest pain (principal); R06.02 Shortness of breath; R51.9 Headache, unspecified; I10 Essential (primary) hypertension; M32.9 Systemic lupus erythematosus, unspecified; Z79.02 Long term (current) use of antithrombotics/antiplatelets; Z86.711 Personal history of pulmonary embolism; Z91.048 Other nonmedicinal substance allergy status
CPT/HCPCS: 99284; 96374; 71046; 80053; 83880; 84484; 85025; 93005